=== PATIENT | male | born 1955 | race Caucasian/White ===

== ENCOUNTER 2020-02-21 18:54 | Emergency (ER) | payer MEDICARE, SELFPAY ==
[2020-02-21] VITALS (20 sets, daily range): BP systolic 116–148; BP diastolic 81–97; PULSE 61–103; RESP 10–26; TEMP 37; O2SAT 94–97; BMI 27.1
--- NOTE | 2020-02-21 19:05 | ECG_ITS ---
Measurements Intervals [place] Rate: 87 P: 44 CA: 177 QRS: 17 QRSD: 113 T: 4 QT: 368 QTc: 445 SINUS RHYTHM MODERATE INTRAVENTRICULAR CONDUCTION DELAY [110+ ms QRS DURATION] No previous ECG available for comparison Electronically Signed On 02-22-2020 8:56:05 CDT by Shannon Hein M.D. [id number]
--- NOTE | 2020-02-21 19:05 | XR_ITS ---
WS: [id number] CHEST XRAY TECHNIQUE: Portable chest. CLINICAL INFORMATION: cp COMPARISON: June 28, 2017 FINDINGS: Heart: Cardiomegaly. Tortuous thoracic aorta. Lungs: Lungs are clear. No consolidation or pleural effusion. Moderate chronic emphysematous change. Bones: Normal visualized bony structures. XR/XR chest 1V portable [id number] IMPRESSION: No acute chest findings
--- NOTE | 2020-02-21 19:06 | W.ED.CHESTPA ---
HPI - Chest Pain General: Chief Complaint: Chest Pain Stated Complaint: svt Time Seen by Provider: 02/21/20 19:05 History of Present Illness: MD complaint: chest discomfort Onset (ago): hour(s) (1) Timing of current episode: constant Onset: during exertion (Mild exertion at work) Pain location: substernal Pain radiation: none Quality: heaviness Associated symptoms: Reports dyspnea, nausea and palpitations; Deny abdominal pain, fever(s) or vomiting Review of Systems Const: Denies: fever or chills Eyes: Denies: change in vision or blurry vision ENMT: Denies: painful swallowing, Change in hearing, nose bleeds, post nasal drip or facial/sinus pain Card: Reports: palpitations; Denies: irregular heart rhythm or edema Resp: Reports: shortness of breath; Denies: productive cough, non-productive cough or wheezing GI: Reports: nausea; Denies: abdominal pain or vomiting : Denies: difficulty urinating or blood in urine Musc: Denies: neck pain or back pain Skin/Breast: Denies: rash, itching or redness Neuro: Reports: headache and dizziness; Denies: vertigo, confusion or seizure-like activity PFS ED PFSH: Social History Smoking and tobacco status: never smoked Physical Exam Const: GENERAL APPEARANCE: well developed ORIENTATION/CONSCIOUSNESS: Yes oriented to person, Yes oriented to place and Yes oriented to time HENMT: COMMON NORMALS: normocephalic, external ears normal and external nose normal HEAD & SCALP: normocephalic FACE & SINUS: normal facial exam NOSE: external nose normal and no nasal discharge EXTERNAL EAR: Yes external ears normal Eye: COMMON NORMALS: PERRL, EOMs intact bilaterally and conjunctivae normal EYELID: eyelids normal CONJUNCTIVA: Yes conjunctivae normal PUPIL: Yes PERRL Neck/C-Spine: GENERAL: No tracheal deviation Chest: COMMONS NORMALS: inspection of chest normal CHEST: No tenderness Resp: COMMON NORMALS: clear to auscultation bilaterally EFFORT & INSPECTION: No tachypneic, No respiratory distress, No retractions, No uses accessory muscles and No tracheal deviation AUSCULTATION: clear to auscultation bilaterally, no rhonchi, no wheezes and lung sounds not diminished Cardio: COMMON NORMALS: regular rate and regular rhythm RATE: regular rate RHYTHM: regular rhythm HEART SOUNDS: no murmurs PERIPHERAL PULSES: radial pulses present GI: INSPECTION: No abdominal distension AUSCULTATION: No hyperactive bowel sounds and No hypoactive bowel sounds PALPATION: No guarding and No rigid PERCUSSION: no dullness to percussion and no tympanic to percussion Neuro: SENSORIUM/ORIENTATION: Yes oriented to person, Yes oriented to place and Yes oriented to time Psych: COMMON NORMALS: mental status grossly normal Skin: COMMON NORMALS: no rashes or lesions noted GENERAL SKIN EXAM: no rashes or lesions noted Course Vital Signs: Vital signs: Vital Signs Temperature 98.6 F 02/21/20 18:57 Pulse Rate 81 02/21/20 21:30 Respiratory Rate 15 02/21/20 21:30 Blood Pressure 116/81 02/21/20 21:30 Pulse Oximetry 96 02/21/20 21:30 MDM - Chest Pain MDM Narrative: Medical decision making narrative: 64-year-old male presents after an episode of SVT. He was at work, stood up quickly got dizzy, diaphoretic, and had severe palpitations. He palpated his rate is around 200. This is his first episode. He was found to be in SVT by EMS. He was cardioverted using adenosine, which took 12 mg to cardiovert him. He is asymptomatic currently. His rate sinus in the 90s on presentation. He is mildly hypertensive. After 2.5 mg of metoprolol his rate 73. His blood pressure is 116/81. He remains asymptomatic. His EKG initially showed a sinus rhythm with no ST segment changes. His second EKG shows a sinus rhythm again without ST elevation or depression. His troponin however went from 18-51. This is likely a rate dependent leak, but of course we cannot prove he has not had an ischemic event. He was counseled on this, and the need for further monitoring, serial troponins, and possibly a stress test in the morning. He is choosing to go home at this point instead, as he is asymptomatic. He knows the risks. We will get him an outpatient stress as soon as possible. He knows to return for any worsening symptoms. Lab Data: Labs: Lab Results 02/21/20 02/21/20 02/21/20 Range/Units 19:11 19:11 19:11 WBC 5.6 (4.0-10.0) 10^3/ uL RBC 4.55 (4.1-5.3) 10^6/u L Hgb 14.5 (11.7-16.6) g/dL Hct 41.9 L (42.0-52.0) % MCV 92.1 (80-94) fL MCH 31.9 (28.0-34.0) pg MCHC 34.6 (30.0-36.0) g/dL RDW 12.3 (12.1-15.1) % Plt Count 242 (130-400) 10^3/c mm MPV 9.6 (7.4-10.4) fL Neut % (Auto) 57.8 % Lymph % (Auto) 26.6 % [place] % (Auto) 9.5 % Eos % (Auto) 5.2 % Baso % (Auto) 0.9 % Neut # (Auto) 3.2 (1.8-7.7) 10^3/u L Lymph # (Auto) 1.5 (0.8-4.8) 10^3/u L [place] # (Auto) 0.5 (0.2-0.9) 10^3/u L Eos # (Auto) 0.3 (0.0-0.8) 10^3/u L Baso # (Auto) 0.1 (0.0-0.1) 10^3/u L Nucleated RBC % (a uto) 0 % Nucleated RBCs # 0.0 /100WBC Sodium 143 (136-145) mmol/L Potassium 3.6 (3.5-5.1) mmol/L Chloride 105 (98-107) mmol/L Carbon Dioxide 24 (22-29) mmol/L Anion Gap 17.6 (5-19) BUN 28 H (8-23) mg/dL Creatinine 0.9 (0.7-1.2) mg/dL GFR Calculation 85.5 L (90-130) mL/min Glucose 116 H (65-115) mg/dL Calculated Osmolal ity 294 (285-295) mOsm/k g Calcium 9.8 (8.5-10.5) mg/dL Total Bilirubin 0.4 (0.15-1.2) mg/dL AST 22 (0-40) U/L ALT 24 (0-41) U/L Alkaline Phosphata se 61 (40-130) IU/L Troponin T Baselin e 18 H (0-15) ng/mL Troponin T 120 Min [place] (0-15) ng/mL Delta Troponin T (0-10) ABS# NT-Pro-B Natriuret Pep 78 (0-125) pg/mL Total Protein 7.2 (6.6-8.7) g/dL Albumin 4.4 (3.5-5.2) g/dL Globulin 2.8 (1.3-4.6) g/dL 02/21/20 Range/Units 21:01 WBC (4.0-10.0) 10^3/ uL RBC (4.1-5.3) 10^6/u L Hgb (11.7-16.6) g/dL Hct (42.0-52.0) % MCV (80-94) fL MCH (28.0-34.0) pg MCHC (30.0-36.0) g/dL RDW (12.1-15.1) % Plt Count (130-400) 10^3/c mm MPV (7.4-10.4) fL Neut % (Auto) % Lymph % (Auto) % [place] % (Auto) % Eos % (Auto) % Baso % (Auto) % Neut # (Auto) (1.8-7.7) 10^3/u L Lymph # (Auto) (0.8-4.8) 10^3/u L [place] # (Auto) (0.2-0.9) 10^3/u L Eos # (Auto) (0.0-0.8) 10^3/u L Baso # (Auto) (0.0-0.1) 10^3/u L Nucleated RBC % (a uto) % Nucleated RBCs # /100WBC Sodium (136-145) mmol/L Potassium (3.5-5.1) mmol/L Chloride (98-107) mmol/L Carbon Dioxide (22-29) mmol/L Anion Gap (5-19) BUN (8-23) mg/dL Creatinine (0.7-1.2) mg/dL GFR Calculation (90-130) mL/min Glucose (65-115) mg/dL Calculated Osmolal ity (285-295) mOsm/k g Calcium (8.5-10.5) mg/dL Total Bilirubin (0.15-1.2) mg/dL AST (0-40) U/L ALT (0-41) U/L Alkaline Phosphata se (40-130) IU/L Troponin T Baselin e (0-15) ng/mL Troponin T 120 Min [place] 51.78 H (0-15) ng/mL Delta Troponin T 33.78 H* (0-10) ABS# NT-Pro-B Natriuret Pep (0-125) pg/mL Total Protein (6.6-8.7) g/dL Albumin (3.5-5.2) g/dL Globulin (1.3-4.6) g/dL Discharge Plan Discharge Patient Disposition: Home, Self-Care Clinical Impression: Supraventricular tachycardia Condition: Stable Discharge Orders: Discharge Order (Routine); Ordered 02/21/20 Ordered By: Ronaldo Mckoy Referrals: Jose Luis Khan FNP-[facility] [Family Provider] - Alfred Smith MD [Referring] - 1-3 days Discharge Diet: Usual diet Discharge Activity: Increase activity as tolerated Patient Instructions: Supraventricular Tachycardia (ED) Activity Restrictions/Additional Instructions: Return immediately to the emergency department for return of palpitations, dizziness, chest discomfort, other concerning symptoms. You should get a call from case management regarding an outpatient stress test by Saturday. If you do not hear from them call [phone] and ask for the ER channel business manager. Coding Level of Care Code ED Blood Bank Laboratory Technologist for [place] Fwd Exam Comprehensive
[2020-02-21 19:15] LABS: Basophils # 0.1 10^3/uL (0.0-0.1); Basophils % 0.9 %; Eosinophils # 0.3 10^3/uL (0.0-0.8); Eosinophils % 5.2 %; Hematocrit 41.9 % (42.0-52.0); Hemoglobin 14.5 g/dL (11.7-16.6); Lymphocytes # 1.5 10^3/uL (0.8-4.8); Lymphocytes % 26.6 %; Mean Corpuscular HGB Conc 34.6 g/dL (30.0-36.0); Mean Corpuscular Hemoglobin 31.9 pg (28.0-34.0); Mean Corpuscular Volume 92.1 fL (80-94); Mean Platelet Volume 9.6 fL (7.4-10.4); Monocytes # 0.5 10^3/uL (0.2-0.9); Monocytes % 9.5 %; Neutrophils # 3.2 10^3/uL (1.8-7.7); Neutrophils % 57.8 %; Nucleated Red Blood Cells % 0 %; Platelet Count 242 10^3/cmm (130-400); Red Blood Count 4.55 10^6/uL (4.1-5.3); Red Cell Distribution Width 12.3 % (12.1-15.1); White Blood Count 5.6 10^3/uL (4.0-10.0)
[2020-02-21] MEDS: aspirin 81 mg Chew Tablet 324 MG PO (19:26)
[2020-02-21 19:34] LABS: Troponin(5th) Baseline 18 ng/mL (0-15)
[2020-02-21 19:43] LABS: Alanine Aminotransferase 24 U/L (0-41); Albumin Level 4.4 g/dL (3.5-5.2); Alkaline Phosphatase 61 IU/L (40-130); Anion Gap 17.6 (5-19); Aspartate Amino Transferase 22 U/L (0-40); Blood Urea Nitrogen 28 mg/dL (8-23); Calcium 9.8 mg/dL (8.5-10.5); Carbon Dioxide 24 mmol/L (22-29); Chloride 105 mmol/L (98-107); Creatinine Clr Calc Pharmacy 99.7235; Globulin 2.8 g/dL (1.3-4.6); Glomerular Filtration Rate 85.5 mL/min (90-130); Glucose 116 mg/dL (65-115); NT Pro B Type Natriuretic Pept 78 pg/mL (0-125); Osmolality Calculated 294 mOsm/kg (285-295); Potassium 3.6 mmol/L (3.5-5.1); Sodium 143 mmol/L (136-145); Total Bilirubin 0.4 mg/dL (0.15-1.2); Total Protein 7.2 g/dL (6.6-8.7)
[2020-02-21] MEDS: metoprolol tartrate 1 mg/1 mL SDV 5 mL 2.5 MG IV (20:55)
--- NOTE | 2020-02-21 21:05 | ECG_ITS ---
Measurements Intervals [place] Rate: 78 P: 39 GA: 182 QRS: 11 QRSD: 100 T: 14 QT: 379 QTc: 433 SINUS RHYTHM No previous ECG available for comparison Electronically Signed On 02-22-2020 9:01:31 CDT by Shannon Hein M.D. [id number] f
[2020-02-21 21:20] LABS: Troponin 5 2HR 51.78 ng/mL (0-15)
[2020-02-21 21:33] LABS: Troponin 5 2HR Delta 33.78 ABS# (0-10)
--- NOTE | 2020-02-21 21:34 | PC.NURSE ---
advised Dr. Mckoy of 2 hour delta 33.78.
--- NOTE | 2020-02-23 15:38 | DCPLANNER ---
hotel manager had message to schedule an out patient stress test for patient. hotel manager got the order written, faxed the order to centralized scheduling. hotel manager will call for appointment information.
--- NOTE | 2020-03-03 15:34 | DCPLANNER ---
Patient has a outpatient stress test scheduled for Saturday, March 14, 2020 at 11:30. Centralized scheduling will call patient for appointment information.
--- NOTE | 2020-03-17 16:05 | DCPLANNER ---
Stress test has been rescheduled.
== END 2020-02-21 23:52 | disposition home or self-care (01) ==
PROVIDERS: Emergency Provider Emergency Medicine; Family Provider Nurse Practitioner
DX: I47.1 Supraventricular tachycardia (principal)
CPT/HCPCS: 12345; 71045; 80053; 83880; 84484; 85025; 93005; 96374; 96375; 99283; 99284; J3490

== ENCOUNTER → 2022-07-24 15:57 | Outpatient (BNVA) | payer MEDICARE, SELFPAY | PROVIDERS: Family Provider Nurse Practitioner; PCP Nurse Practitioner Family; Visit Provider Nurse Practitioner Family | DX: I10 Essential (primary) hypertension (principal); Z12.5 Encounter for screening for malignant neoplasm of prostate | CPT/HCPCS: 80061; G0103 ==